=== PATIENT | male | born 1945 | race Caucasian/White ===

== ENCOUNTER → 2021-09-27 12:52 | Outpatient (CLI) | payer OTHER, SELFPAY | PROVIDERS: PCP Family Medicine; Referring Provider Specialist; Visit Provider Specialist | DX: N40.1 Benign prostatic hyperplasia with lower urinary tract symptoms (principal); R30.0 Dysuria; R33.9 Retention of urine, unspecified; N13.8 Other obstructive and reflux uropathy; Z87.898 Personal history of other specified conditions | CPT/HCPCS: 51798; 81002; 87077; 87086; 99214 ==

== ENCOUNTER → 2021-10-08 14:54 | Outpatient (CLI) | payer OTHER, SELFPAY ==
[2021-10-08 15:24] LABS: Appearance Urine UA SL CLOUDY; Bilirubin Urine UA NEGATIVE (NEGATIVE); Color Urine UA YELLOW; Glucose Urine UA NEGATIVE (Negative); Ketones Urine UA TRACE (NEGATIVE); Leukocyte Esterase Urine UA 2+ (NEGATIVE); Nitrite Urine UA NEGATIVE (Negative); Occult Blood Urine UA NEGATIVE (Negative); Protein Urine UA TRACE (Negative); Specific Gravity Urine UA >=1.030 (1.000-1.035); Urobilinogen Urine UA 0.2 E.U./dL (0.2)
[2021-10-08 15:53] LABS: Bacteria Urine None Seen; Culture Indicated Urine Specimen Cultured; RBC Urine None Seen (0-5/HPF); Squamous Epithelial Cell Urine 0-1 /HPF (0-5/HPF); WBC Urine 30-100/HPF (0-5/HPF)
== END ==
PROVIDERS: Referring Provider Specialist; Visit Provider Specialist
DX: R30.0 Dysuria (principal)
CPT/HCPCS: 81001; 87077; 87086

== ENCOUNTER → 2021-10-22 09:36 | Outpatient (CLI) | payer OTHER, SELFPAY ==
[2021-10-22 10:58] LABS: Appearance Urine UA CLEAR; Bilirubin Urine UA NEGATIVE (NEGATIVE); Color Urine UA YELLOW; Glucose Urine UA NEGATIVE (Negative); Ketones Urine UA NEGATIVE (NEGATIVE); Leukocyte Esterase Urine UA 1+ (NEGATIVE); Nitrite Urine UA NEGATIVE (Negative); Occult Blood Urine UA NEGATIVE (Negative); Protein Urine UA NEGATIVE (Negative); Urobilinogen Urine UA 0.2 E.U./dL (0.2)
[2021-10-22 11:16] LABS: RBC Urine 0-1/HPF (0-5/HPF); WBC Urine 5-10/HPF (0-5/HPF)
[2021-10-22 11:17] LABS: Bacteria Urine Few (2-10); Culture Indicated Urine Specimen Cultured
== END ==
PROVIDERS: PCP Family Medicine Sports Medicine; Referring Provider Specialist; Visit Provider Specialist
DX: R33.9 Retention of urine, unspecified (principal); N40.1 Benign prostatic hyperplasia with lower urinary tract symptoms; N13.8 Other obstructive and reflux uropathy
CPT/HCPCS: 81001; 87077; 87086

== ENCOUNTER → 2021-12-21 09:18 | Outpatient (CLI) | payer OTHER, SELFPAY ==
[2021-12-21 09:41] LABS: COVID19 -Nasal RAPID Negative (Negative)
== END ==
PROVIDERS: Family Provider Family Medicine Sports Medicine; PCP Family Medicine Sports Medicine; Visit Provider Specialist
DX: Z20.822 Contact with and (suspected) exposure to COVID-19 (principal)
CPT/HCPCS: 87635

== ENCOUNTER 2021-12-24 06:38 | Inpatient (IN) | payer OTHER, SELFPAY ==
[2021-11-28 08:41] VITALS: BMI 26.3
[2021-12-24] VITALS (14 sets, daily range): BP systolic 100–167; BP diastolic 57–80; PULSE 55–84; RESP 10–17; TEMP 35.9–36.6; O2SAT 95–100; BMI 26.3
--- NOTE | 2021-12-24 | PATH_ITS ---
[facility] Accession Number: [id number] . 01 Material submitted: . prostate - PROSTATE . 02 Diagnosis: Prostate, Prostatectomy (Weight 60 grams): Benign prostatic tissue with glandular and stromal hyperplasia and patchy chronic prostatitis. V 12/28/2021 1429 Local . 02 Electronically signed: . Fanny Linder MD, Pathologist NPI- [id number] . 01 Gross description: . The specimen is received in formalin, labeled prostate, and consists of a nodular excision of prostatic tissue weighing 60 g, measuring 6.7 x 5.5 x 4.7 cm. The entire external surface is inked blue. The vas deferens and bilateral vas deferentia are not received intact with the specimen. The specimen is serially sectioned into 13 slices revealing a compressed and slit-like urethra and multinodular cut surfaces. No distinct lesions or masses are present. The specimen is representatively submitted as follows: . A1: Slice 1, bisected. A2: Advertising Editor section of slice 3. A3: Advertising Editor section of slice 5. A4-A5: Advertising Editor sections of slice 6. A6: Advertising Editor section of slice 8. A7-A8: Advertising Editor sections of slice 9. A9: Advertising Editor section of slice 10. A10: Advertising Editor section of slice 11. A11: Slice 13, entirely. ([id number]) /FRR 12/26/2021 0404 Local . 02 Pathologist provided ICD-10: N40.1, R33.9, N21.0 . 02 CPT . 074343 Specimen Comment: A courtesy copy of this report has been sent to [phone] Performed at: 01 [facility] [address] [place] [address], [place], [place] [id number] MD Himanshu Rojas MD Phone: [phone] Performed at: 02 [facility] [id number] [place] [address] [place], [place] [id number] MD Roberta Toribio MD Phone: [phone]
[2021-12-24] MEDS: LACTATED RINGERS 1,000 ML 84 ML IV ×2 (07:20→09:41)
--- NOTE | 2021-12-24 07:32 | PM.PREOP ---
Pre-operative Note COVID-19 Criteria for continued procedure: Expected advancement of disease process, Increased loss of function, Deterioration of the patient's condition or overall health, Delay expected to result in less-positive ultimate med/surg outcome and Non-surgical alternatives not available or appropriate per current SOC Interval Note History & Physical reviewed/Exam performed by Physician: Yes Changes to H&P: No
[2021-12-24] MEDS: GENTAMICIN 160 MG in SODIUM CHLORIDE 0.9% 100 ML 104 ML IV (07:33)
[2021-12-24] MEDS: ACETAMINOPHEN IV 1,000 MG/100 ML VIAL 400 MG IV (07:35)
[2021-12-24] MEDS: AMPICILLIN/SULBACTAM 3 GM 3 GM in SODIUM CHLORIDE 0.9% 100 ML IV (08:25)
[2021-12-24 08:41] LABS: Hemoglobin 13.7 g/dL (13.5-17.5)
--- NOTE | 2021-12-24 08:47 | SUR.OPER ---
Supine on padded OR bed, head on pillow, arms secured on padded arm boards at <90 degrees abduction, legs uncrossed, safety belt at thigh.
[2021-12-24 08:55] LABS: Appearance Urine UA CLEAR; Bilirubin Urine UA NEGATIVE (NEGATIVE); Color Urine UA YELLOW; Glucose Urine UA NEGATIVE (Negative); Ketones Urine UA NEGATIVE (NEGATIVE); Leukocyte Esterase Urine UA NEGATIVE (NEGATIVE); Nitrite Urine UA NEGATIVE (Negative); Occult Blood Urine UA 1+ (Negative); Protein Urine UA TRACE (Negative); Specific Gravity Urine UA 1.025 (1.000-1.035); Urobilinogen Urine UA 0.2 E.U./dL (0.2)
[2021-12-24 09:06] LABS: Bacteria Urine None Seen; Culture Indicated Urine Cult Not Indicated; RBC Urine 1-5/HPF (0-5/HPF); WBC Urine None Seen (0-5/HPF)
[2021-12-24] MEDS: BUPIVACAINE 0.5% (PF) 30 ML, EPINEPHrine 0.15 MG INJ (09:47)
[2021-12-24] MEDS: BUPIVACAINE LIPOSOME 266 MG/20 ML VIAL INJ (10:15)
--- NOTE | 2021-12-24 11:00 | PM.OP.1 ---
Operative Date/Time/Diagnoses Date of procedure: 12/24/21 Time of procedure: 10:35 Pre-op diagnosis: 1. History of urinary retention. 2. BPH. 3. Bladder calculi. Post-op diagnosis: same Procedure & Clinicians Procedure: 1. Simple open prostatectomy. 2. Removal multiple bladder calculi. Same procedure as scheduled: No (Incidental finding removal bladder calculi) Indications: 1. History of urinary retention. 2. BPH Surgeon: Marialuisa Paris Oceanographer Geological: Gely Rachel Click Yes if Unassisted: No Anesthesia Type: General, Spinal (Duramorph) and Local (1.33% Exparel) Operative Notes Findings: 1. Normal lower abdominal wall tissue planes. 2. Thickened bladder wall consistent with bladder outlet obstruction. 3. Small to moderate sized intravesical median lobe. 4. Multiple flake like bladder calculi. 5. Nodular adenoma. Closure Type: primary Specimen(s): other (1. Prostate adenoma. 2. Bladder calculi. ) Applied: catheter (Twenty-two Samoan [address] Urena catheter.) and drain(s) (Fifteen Samoan Kieran drain) Estimated Blood Loss (mL): 250 Blood products transfused: none Procedure in detail: Patient was positioned supine following placement of Duramorph spinal anesthesia. He was then provided general anesthesia. The abdomen, genitalia, and groin were then prepped and draped in sterile fashion. A 20 Samoan Urena catheter was then inserted lower urinary tract and the balloon inflated to 10 cc. A specimen was procured for urinalysis and reflex culture. Bladder contents were completely drained and then it was filled with sterile normal saline to a volume of 360 cc. A midline infraumbilical incision was then made through the midline structures to level of the pelvic retroperitoneum using combination of sharp, blunt, and cautery techniques. The fat overlying the anterior and superior aspect of the bladder within swept clear of its surface. The midline of the bladder wall was then infiltrated with solution of 0.5% Marcaine with epinephrine. A cystotomy was then created in the midline and the sterile saline contents of the bladder were then drained completely. Once adequate exposure of the bladder neck was performed removal of bladder calculi was performed. Next, the mucosa and submucosa surrounding the circumferential impingement and median lobe of the prostate was undertaken with 0.5% Marcaine with epinephrine. Now the cautery pen was used to create a circumferential line around the bladder neck to include the margin of the prostatic encroachment. The appropriate plane was then developed through the muscularis of the bladder neck onto the surface of the adenoma. Painstaking blunt, sharp and cautery dissection was then undertaken to mobilize the adenoma from the prostatic fossa. A 0 Vicryl was utilized to assist in retraction. The adenoma was then removed in its entirety in handed off the field to be submitted for routine gross and microscopic examination. Now 2-0 Monocryl were utilized to perform [id number] suture at the bladder neck for hemostasis. A [address] Urena catheter was then passed the lower urinary track over a guide stylet and was positioned within the bladder lumen under direct visualization. A inner, mucosal muscular layer closure in running fashion was performed with 2-0 Monocryl. Then, an outer serosa muscular closure utilizing a Lembert technique was performed with 2-0 Monocryl thus completing closure of the cystotomy. The balloon of the catheter was then inflated to 30 cc and was hand irrigated to a light pink. It was then set to normal saline continuous bladder irrigation. A 15 Samoan Kieran drain was then passed through the lower abdominal wall to the right of the midline incision. It was secured to the skin using a Golden sandal technique of 2-0 silk. The midline abdominal fascia was then reapproximated with a running 0 PDS beginning at each the superior, and the inferior apex and then running 1 another to approximately the midpoint incision and then time knows to 1 another utilizing a buried technique. The subcutaneous Xander's fascia was then reapproximated with running 2-0 Vicryl. The skin was reapproximated with a running subcuticular 4-0 Monocryl. The drain was affixed to a bulb self suction and the 3 way Urena catheter outflow to gravity back. Telfa gauze was then cut and tailored to appropriately cover the drain site and the midline incision. Over each of these Op site was applied for a bio occlusive top dressing. The patient was then awakened, transferred to [facility], and transported to recovery in stable condition. Complications: none Post-operative Condition: stable Disposition: PACU Plan for aftercare: Transfer to acute care.
[2021-12-24] MEDS: LACTATED RINGERS 1,000 ML 125 ML IV ×2 (12:22→19:38)
[2021-12-24] MEDS: LOSARTAN 25 MG TABLET 50 MG PO (20:15)
[2021-12-25] VITALS (8 sets, daily range): BP systolic 95–151; BP diastolic 52–86; PULSE 66–79; RESP 16–18; TEMP 36.4–37.5; O2SAT 94–98
--- NOTE | 2021-12-25 00:34 | PC.NURSE ---
Ambulated to bedside commode without issue. Pain well controlled. Bladder irrigation continues with light-pink output.
[2021-12-25] MEDS: ENOXAPARIN 40 MG/0.4 ML SYRINGE SUBCUT (08:11)
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
[2021-12-25] MEDS: HYDROMORPHONE 0.5 MG INJ IV ×3 (17:20→22:34)
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
[2021-12-25] MEDS: BELLADONNA/OPIUM SUPPOSITORIES 1 EACH PR ×2 (17:56→22:09)
[2021-12-25] MEDS: LOSARTAN 25 MG TABLET 50 MG PO (21:20)
[2021-12-25] MEDS: CALCIUM CARBONATE 500 MG TAB 1000 MG PO (21:20)
[2021-12-26] VITALS (10 sets, daily range): BP systolic 125–156; BP diastolic 64–92; PULSE 68–77; RESP 15–18; TEMP 36.4–36.9; O2SAT 92–97
[2021-12-26] MEDS: BELLADONNA/OPIUM SUPPOSITORIES 1 EACH PR ×5 (02:05→20:24)
[2021-12-26] MEDS: OXYCODONE IR 5 MG TABLET PO ×5 (02:05→20:24)
[2021-12-26] MEDS: CALCIUM CARBONATE 500 MG TAB 1000 MG PO (05:12)
[2021-12-26] MEDS: ENOXAPARIN 40 MG/0.4 ML SYRINGE SUBCUT (09:13)
[2021-12-26] MEDS: ACETAMINOPHEN 325 MG TABLET 650 MG PO (10:31)
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
[2021-12-26] MEDS: BISACODYL 10 MG SUPP PR (14:43)
[2021-12-26] MEDS: LOSARTAN 25 MG TABLET 50 MG PO (20:25)
[2021-12-27] MEDS: BELLADONNA/OPIUM SUPPOSITORIES 1 EACH PR ×4 (00:26→13:16)
[2021-12-27] MEDS: OXYCODONE IR 5 MG TABLET PO ×4 (00:26→13:17)
[2021-12-27 01:00] VITALS: BP 136/78; PULSE 72; RESP 15; TEMP 36.8; O2SAT 94
[2021-12-27 05:00] VITALS: BP 139/76; PULSE 74; RESP 16; TEMP 36.7; O2SAT 93
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
[2021-12-27 08:38] VITALS: PULSE 77; RESP 18; O2SAT 96
[2021-12-27 09:00] VITALS: BP 125/71; PULSE 77; RESP 18; TEMP 36; O2SAT 93
[2021-12-27] MEDS: ENOXAPARIN 40 MG/0.4 ML SYRINGE SUBCUT (09:28)
[2021-12-27 13:00] VITALS: BP 142/83; PULSE 78; RESP 18; TEMP 36.4; O2SAT 97
--- NOTE | 2021-12-27 15:03 | PC.NURSE ---
Discharge note: Patient discharged per MD order. Urena Catheter to remain in place. 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 Patient showered prior to DC. Educated patient and spouse regarding home catheter use and care. Also, instructed SQ injection home administration. Catheter plug placed in 3 way inflow. 3way Urena Cather outflow to gravity. Urena Catheter draining to gravity. Discussed importance of F/U with Dr. Paris, signs of worsening symptoms, and new medications. Both verbalized understanding of discharge instructions. Home via private vehicle accompanied by Khadar (spouse). Rx already picked up.
[2021-12-28 16:35] LABS: Ca oxalate dihydrate 20 % (.); Ca oxalate monohydr 80 % (.); Size 6x4 mm (.)
== END 2021-12-27 15:13 | disposition home or self-care (01) | DRG 707 ==
PROVIDERS: Admitting Provider Specialist; Family Provider Family Medicine Sports Medicine; PCP Family Medicine Sports Medicine; Referring Provider Specialist; Visit Provider Specialist
PROC: 0VT00ZZ Resection of Prostate, Open Approach (ICD-10-PCS; principal; 2021-12-24 07:45)
DX: N40.1 Benign prostatic hyperplasia with lower urinary tract symptoms (principal); N13.8 Other obstructive and reflux uropathy; R33.8 Other retention of urine; N21.0 Calculus in bladder; N32.89 Other specified disorders of bladder; E78.5 Hyperlipidemia, unspecified; I10 Essential (primary) hypertension; Z20.822 Contact with and (suspected) exposure to COVID-19; Z87.891 Personal history of nicotine dependence
CPT/HCPCS: 55831; 81001; 82365; 85014; 85018; 86850; 86900; 86901; 87077; 87086; 87635; 94760; 94762; C9803; C9290; J0131; J0171; J0295; J1100; J1170; J1650; J2250; J2274; J2405; J2704; J3010

== ENCOUNTER → 2022-01-18 12:25 | Outpatient (CLI) | payer OTHER, SELFPAY ==
[2021-12-24 15:34] VITALS: BMI 26.3
[2022-01-18 14:02] LABS: Appearance Urine UA CLOUDY; Bilirubin Urine UA NEGATIVE (NEGATIVE); Color Urine UA YELLOW; Glucose Urine UA NEGATIVE (Negative); Ketones Urine UA NEGATIVE (NEGATIVE); Leukocyte Esterase Urine UA 2+ (NEGATIVE); Nitrite Urine UA POSITIVE (Negative); Occult Blood Urine UA 3+ (Negative); Protein Urine UA 2+ (Negative); Specific Gravity Urine UA 1.015 (1.000-1.035); Urobilinogen Urine UA 0.2 E.U./dL (0.2); pH Urine UA 5.5 (4.5-8.0)
[2022-01-18 14:14] LABS: RBC Urine 5-10/HPF (0-5/HPF); Squamous Epithelial Cell Urine 1-5 /HPF (0-5/HPF); WBC Urine >100/HPF (0-5/HPF)
[2022-01-18 14:15] LABS: Bacteria Urine None Seen; Culture Indicated Urine Specimen Cultured
== END ==
PROVIDERS: Family Provider Family Medicine Sports Medicine; PCP Family Medicine Sports Medicine; Referring Provider Specialist; Visit Provider Specialist
DX: R30.0 Dysuria (principal)
CPT/HCPCS: 81001; 87077; 87086; 87147; 87186

== ENCOUNTER → 2022-02-07 07:52 | Outpatient (CLI) | payer OTHER, SELFPAY ==
[2021-12-24 15:34] VITALS: BMI 26.3
--- NOTE | 2022-02-07 07:53 | DI.US.S_ITS ---
PROCEDURE: US SCROTUM INDICATIONS: SWOLLEN TESTICLE TECHNIQUE: Real-time scanning was performed of the scrotum and testicles, with image documentation. Color and pulse Doppler interrogation was performed of both testicles. COMPARISON: None. FINDINGS: Right: Testicle is normal in size at 4.9 x 2.5 x 2.6 cm, and homogenous in echotexture. Epididymis is normal in overall size and morphology. No hydrocele or varicoceles. Overlying scrotal skin is normal in thickness. Left: Testicle is normal in size at 4.0 x 1.8 x 3.2 cm, and homogeneous in echotexture. Epididymis is normal in overall size and morphology. No hydrocele or varicoceles. Thickening and hyperemia noted in the left inferior scrotal skin. Doppler: Color and pulse Doppler demonstrate normal and symmetric arterial flow in both testicles. IMPRESSION: 1. Testicles and epididymi normal in sonographic appearance. 2. Focal skin thickening and hyperemia involving the left inferior scrotum. Finding is nonspecific but may represent vascular malformation, infection or less likely neoplastic process. Recommend correlation with physical findings. Dictated by: Radha Jenkins MD, PhD on 02/07/2022 at 14:13 Approved by: Radha Jenkins MD, PhD on 02/07/2022 at 14:16
[2022-02-07 09:05] LABS: Appearance Urine UA CLOUDY; Bilirubin Urine UA NEGATIVE (NEGATIVE); Color Urine UA YELLOW; Glucose Urine UA NEGATIVE (Negative); Ketones Urine UA NEGATIVE (NEGATIVE); Leukocyte Esterase Urine UA 2+ (NEGATIVE); Nitrite Urine UA POSITIVE (Negative); Occult Blood Urine UA 2+ (Negative); Protein Urine UA 2+ (Negative); Specific Gravity Urine UA 1.025 (1.000-1.035); Urobilinogen Urine UA 0.2 E.U./dL (0.2); pH Urine UA 5.5 (4.5-8.0)
[2022-02-07 09:23] LABS: Bacteria Urine Moderate (10-30); Culture Indicated Urine Specimen Cultured; RBC Urine 5-10/HPF (0-5/HPF); WBC Urine 10-30/HPF (0-5/HPF)
[2022-02-07 10:45] LABS: Prostate Specific Antigen 5.22 ng/mL (0.10-4.00)
== END ==
PROVIDERS: Family Provider Family Medicine Sports Medicine; PCP Family Medicine Sports Medicine; Referring Provider Specialist; Visit Provider Specialist
DX: R97.20 Elevated prostate specific antigen [PSA] (principal); N50.89 Other specified disorders of the male genital organs; R30.0 Dysuria
CPT/HCPCS: 36415; 76870; 81001; 84153; 87077; 87086; 87147; 87186

== ENCOUNTER → 2022-02-12 13:30 | Outpatient (CLI) | payer OTHER, SELFPAY ==
[2021-12-24 15:34] VITALS: BMI 26.3
== END ==
PROVIDERS: Family Provider Family Medicine Sports Medicine; PCP Family Medicine Sports Medicine; Visit Provider Specialist
DX: Z09 Encounter for follow-up examination after completed treatment for conditions other than malignant neoplasm (principal); R30.0 Dysuria
CPT/HCPCS: 51798; 81002; 87086

== ENCOUNTER → 2022-05-29 07:52 | Outpatient (CLI) | payer OTHER, SELFPAY ==
[2021-12-24 15:34] VITALS: BMI 26.3
[2022-05-29 10:37] LABS: Prostate Specific Antigen 2.63 ng/mL (0.10-4.00)
== END ==
PROVIDERS: Family Provider Family Medicine Sports Medicine; PCP Family Medicine Sports Medicine; Referring Provider Specialist; Visit Provider Specialist
DX: N40.1 Benign prostatic hyperplasia with lower urinary tract symptoms (principal); N13.8 Other obstructive and reflux uropathy
CPT/HCPCS: 36415; 84153

== ENCOUNTER → 2022-12-10 11:15 | Outpatient (CLI) | payer OTHER, SELFPAY ==
[2021-12-24 15:34] VITALS: BMI 26.3
[2022-12-10 12:26] LABS: Prostate Specific Antigen 1.62 ng/mL (0.10-4.00)
== END ==
PROVIDERS: Family Provider Family Medicine Sports Medicine; PCP Family Medicine Sports Medicine; Referring Provider Specialist; Visit Provider Specialist
DX: N40.1 Benign prostatic hyperplasia with lower urinary tract symptoms (principal); N13.8 Other obstructive and reflux uropathy; R33.9 Retention of urine, unspecified
CPT/HCPCS: 36415; 84153

== ENCOUNTER → 2023-04-11 09:38 | Outpatient (RCR) | payer OTHER, SELFPAY ==
--- NOTE | 2021-11-27 18:12 | PT.OPPOC ---
Physical, Occupational & Speech Therapy At [facility] Current Diagnoses Other obstructive and reflux uropathy (11/27/21) Benign prostatic hyperplasia with lower urinary tract symptoms (11/27/21) Retention of urine, unspecified (11/27/21) Personal history of other specified conditions (11/27/21) Visit Care Team Role Provider Type Rodríguez Jain MD Family Provider Non-Staff Primary Care Provider Specialty: Family Practice Address: [address] [place], [address] Email: Marialuisa Paris MD Attending Provider Physician Referring Provider Specialty: Urology Address: [address] [place] [address], [id number] Email: Plan Of Care PT-OP-T Assessment and Plan Start: 11/27/21 12:17 Freq: Status: Active Protocol: Document 11/27/21 13:50 [facility] (Rec: 11/28/21 09:45 [facility] [id number]) Physical Therapy Assessment Rehab Potential Rehabilitation Potential Good Evaluation Complexity Number of Personal Factors/Comorbidities 0 Number of Body Systems Impaired 1-2 Clinical Presentation at Evaluation Stable Impairments Impairments Strength,Tone Other Impairments enlarged prostate and severe bladder trabeculation resulting in hx of incomplete bladder emptying and associated severe Lower urinary tract symptoms Goals 1 Impairment pt lacks a home exercise program for his pelvic floor for post operative open prostatectomy scheduled on 07/23 Short Term Goal (STG) Pt understands and is given a home plan of care for pelvic floor strengthening to begin now prior to his surgery and then for him to continue with post operatively. STG Duration 11/27/21 Assessment Summary Assessment Lauri is a 76 year male referred to Physical Therapy for Pre-op pelvic floor assessment and training. He is scheduled for a simple open prostatectomy on 12/10/21. Pt has a history of recurrent urinary retention, incomplete bladder emptying, and associated severe lower urinary tract symptoms. He underwent a lower tract evaluation with cystoscopy and prostate ultrasound 10/30/21. This revealed a markedly enlarged prostate and severe bladder trabeculation. Past medical history include BPH, BPH with urinary obs/LUTS, elevated PSA, hx of urinary retention, UTI. At time of evaluation Lauri reports he is able to void without straining and he denies any c/ o urinary incontinence. Lauri did not wish to have a rectal examination today so external assessment of the pelvic floor was performed. Lauri was educated in proper pelvic floor contraction as well as relaxation. He has limited endurance of the pelvic floor to 2-3 seconds only. He was given a home program to start with now to work up to 10 second holds if he is able to prior to his surgery. He was given a program to begin postoperatively including exercises for his hips to help activate his pelvic floor. He may be a good candidate for PT post operatively depending on his symptoms. Physical Therapy Plan Frequency and Duration Frequency of Treatment 1x/Week Duration of Treatment 12 weeks Plan of Care Start Date 11/27/21 Plan of Care End Date 02/26/22 Therapeutic Interventions Therapeutic Interventions Home Exercise Program,Patient/ Caregiver Education,Self-Care/ Home Management,Soft Tissue Mobilization Next Visit Focus/Plan Next Note Type Treatment Note Next Visit Plan If pt needs further care following his surgery PT will focus on pelvic floor stabilization exercises Plan of Care Dates Plan of Care Start Date 11/27/21 Plan of Care End Date 02/26/22 Electronically Signed by: Lori Gonzáles, PT 11/29/21 [id number] Please Sign and Return: I have reviewed this Plan of Care and certify that the skilled therapy services above are required to meet the patient?s needs. Physician Signature Date Printed Name and Credentials Clinical Instructor Signature Printed Name and Credentials
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
== END | disposition home or self-care (01) ==
LOC: PHYS 11-27 13:24
PROVIDERS: Family Provider Family Medicine Sports Medicine; PCP Family Medicine Sports Medicine; Referring Provider Specialist; Visit Provider Specialist
DX: R33.9 Retention of urine, unspecified (principal); N40.1 Benign prostatic hyperplasia with lower urinary tract symptoms; N13.8 Other obstructive and reflux uropathy; Z87.898 Personal history of other specified conditions
CPT/HCPCS: 97110; 97161

== ENCOUNTER → 2023-12-11 09:26 | Outpatient (CLI) | payer OTHER, SELFPAY ==
[2021-12-24 15:34] VITALS: BMI 26.3
[2023-12-11 11:01] LABS: Prostate Specific Antigen 1.91 ng/mL (0.10-4.00)
== END ==
LOC: LAB 09:27
PROVIDERS: Family Provider Family Medicine Sports Medicine; PCP Family Medicine Sports Medicine; Referring Provider Specialist; Visit Provider Specialist
DX: N40.1 Benign prostatic hyperplasia with lower urinary tract symptoms (principal); N13.8 Other obstructive and reflux uropathy; R97.20 Elevated prostate specific antigen [PSA]
CPT/HCPCS: 36415; 84153